=== PATIENT | female | born 1970 ===

== ENCOUNTER 2021-01-27 03:32 | Emergency (ER) | payer SELFPAY ==
[~2021-01-27] VITALS: Ht 165.1 cm; Wt 82.7 kg
[2021-01-27 03:34] VITALS: BP 138/86; Ht 165.1 cm; Wt 82.7 kg
[2021-01-27 04:20] LABS: BASOPHILS 0.3 % (0-2); EOSINOPHILS 3.8 % (0-7); HEMATOCRIT 47.8 % (36.0-48.0); HEMOGLOBIN 16.2 g/dL (12-16); IMMATURE GRANULOCYTES 0.4 % (0-5); LYMPHOCYTE ABS# 2.63 10x3/uL (1.18-3.74); MCH 31.7 pg (26.0-34.0); MCHC 33.9 g/dL (31.0-37.0); MCV 93.5 fL (80.0-100.0); MEAN PLATELET VOLUME 9.5 fL (7.4-10.4); MONOCYTES 4.5 % (2-11); PLATELET COUNT 249 10x3/uL (130-400); RBC 5.11 10x6/uL (4.00-5.40); RDW 15.3 % (11.5-14.5); WBC 9.4 10x3/uL (4.8-10.8)
--- NOTE | 2021-01-27 04:20 | NUR ---
DR RODRÍGUEZ NOTIFIED AND REVIEWED PT's BEHAVIOR AND ASSESSMENT RESULTS. PT IS A LOW RISK PER DR RODRÍGUEZ. DR RODRÍGUEZ STATED TO GIVE RESOURCES TO PT AT TIME OF DISCHAGE. NO FURTHER ORDERS AT THIS TIME. RESOURCES REVIEWED WITH PT AND SHE VERBALIZED UNDERSTANDING.
[2021-01-27 04:30] LABS: CALC OSMOLALITY 279 mosm/kg (275-300); CALCIUM 8.2 mg/dL (8.5-10.1); CARBON DIOXIDE 29.2 mmol/L (21.0-32.0); CHLORIDE - SERUM 106 mmol/L (98-107); CREATININE - SERUM 0.8 mg/dL (0.6-1.3); GLUCOSE 117 mg/dL (74-106); POTASSIUM - SERUM 3.4 mmol/L (3.5-5.1); SODIUM 141 mmol/L (136-145); UREA NITROGEN 8 mg/dL (7-18); eGFR NON AFRICAN AMERICAN 81 mL/min (90-120)
[2021-01-27 04:39] LABS: BILIRUBIN NEGATIVE (NEGATIVE); KETONE NEGATIVE (NEGATIVE); NITRITE NEGATIVE (NEGATIVE); UROBILINOGEN NORMAL mg/dL (< 2)
[2021-01-27 04:45] LABS: ALBUMIN 3.1 g/dL (3.4-5.0); ALKALINE PHOSPHATASE 91 U/L (30-120); ALT (SGPT) 34 U/L (10-68); BILIRUBIN - TOTAL 0.15 mg/dL (0.2-1.3); THYROID STIMULATING HORMONE 1.93 uIU/mL (0.36-3.74)
[2021-01-27 04:45] LABS: UDS - AMPHET NEGATIVE QUAL (NEGATIVE); UDS - BARB NEGATIVE QUAL (NEGATIVE); UDS - BENZO NEGATIVE QUAL (NEGATIVE); UDS - COCAINE NEGATIVE QUAL (NEGATIVE); UDS - OPIATE NEGATIVE QUAL (NEGATIVE); UDS - PCP NEGATIVE QUAL (NEGATIVE); UDS - THC POSITIVE QUAL (NEGATIVE)
[2021-01-27] MEDS ORDERED: LEXAPRO20 MG PO (05:01)
== END 2021-01-27 05:18 | disposition home or self-care (01) ==
LOC: D.ER 03:32
PROVIDERS: Family Medicine
DX: F31.9 Bipolar disorder, unspecified (principal); I10 Essential (primary) hypertension; Z72.0 Tobacco use; R45.851 Suicidal ideations; R41.0 Disorientation, unspecified